=== PATIENT | female | born 1970 | race Caucasian/White ===

== ENCOUNTER 2024-12-09 22:26 | Observation (INO) ==
[2024-12-09] MEDS: SODIUM CHLORIDE 0.9% 1,000 ML IV ONE (22:55)
--- NOTE | 2024-12-09 23:01 | Emergency Department Note ---
Impression & Plan Cellulitis of right knee, Cat scratch of right lower leg, Abscess of right leg ED Provider Note CHIEF COMPLAINT: Cat scratch, right leg infection HISTORY OF PRESENT ILLNESS: This 53-year-old female patient presents to the emergency department via private vehicle for evaluation after a cat scratch. The patient states on Saturday, her friend's cat scratched her right leg. She states she noticed it become red and swollen and painful and on Saturday was seen at urgent care where she was started on Augmentin and Bactrim. She has been on these antibiotics for greater than 48 hours and was advised to come to the emergency department if she did not note significant improvement in her infection by Saturday. She states that the redness and purulent discharge are persistent. She denies red streaking up the leg or swollen lymph nodes. No fever or chills. She is able to ambulate on the extremity. She denies any nausea or vomiting or other systemic symptoms. Patient feels pretty confident that the injury was not from a bite. She states the cats vaccinations are up to date. Her vaccinations including tetanus are up to date. History provided by: Patient REVIEW OF SYSTEMS: A 10 system review of systems was performed with positives and pertinent negatives listed in the history of present illness. All other systems were reviewed and are negative. ALLERGIES: NKDA PHYSICAL EXAM: VITALS: Vitals are noted on the nurse's note and reviewed by myself. GENERAL: This is a 53 year old female, in no acute distress, nondiaphoretic, well-developed well-nourished. SKIN: Erythema with 3 puncture type of wounds on the lateral aspect of the right knee with purulent discharge from the wounds and tenderness in the area. The area is indurated. The skin was otherwise without rashes, erythema, edema, or bruising. There is no tenting of the skin. Capillary refill less than 2 seconds. HEAD: Normocephalic atraumatic. EYES: Conjunctivae without injection, sclerae without icterus. MOUTH: Mucous membranes moist. NECK: Supple without nuchal rigidity. No lymphadenopathy. Cervical spine is nontender. No JVD. HEART: Regular rate and rhythm without murmurs gallops or rubs. LUNGS: Clear to auscultation bilaterally without wheezes, rales or rhonchi. No retractions or accessory muscle use. MUSCULOSKELETAL: No muscle atrophy, erythema, or edema noted. Full range of motion without joint tenderness in all extremities. No tenderness to palpation. Normal gait. Strength 5/5 throughout. NEURO: Patient was alert and oriented to person place and time. No focal neurological deficits. EMERGENCY DEPARTMENT COURSE: The patient was evaluated as above. The patient presents for ongoing right lower extremity cellulitis and abscess secondary to a cat scratch 4 days ago. She has been on greater than 48 hours of antibiotics with no improvement and the symptoms may actually be worsening. She is having purulent discharge. There is induration but no fluctuance to palpation. The patient is afebrile. No lymphadenopathy or lymphangitis at this time. IV access obtained, labs were drawn. Labs reviewed. Per my interpretation, no leukocytosis. No concerning anemia or thrombocytopenia. Renal, hepatic function and electrolytes without significant abnormality. Patient was hydrated IV fluids and medicated with azithromycin and Zosyn. I discussed the case with assistant facility manager, followed by Dr. West, [facility] hospitalist physician who agreed to evaluate the patient for admission. Please see hospitalist dictation regarding ongoing management of this patient. Case was discussed with the attending physician. I attest that I have personally reviewed the patient medication list. I attest that I have reviewed the patient's blood pressure and it was found to be elevated. Suspect this to be situational in nature. GCS: 15 In the evaluation and treatment of this patient the following differential diagnoses were entertained:Cellulitis, abscess, MRSA infection, DVT, necrotizing fasciitis, dermatitis, drug eruption, allergic reaction, as well as other pathologies. The chart was completed utilizing [employer] Speech voice recognition software. Grammatical errors, random word insertions, pronoun errors, and incomplete sentences are an occasional consequence of this system due to software limitations, ambient noise, and hardware issues. Any formal questions or concerns about the content, text, or information contained within the body of this dictation should be directly addressed to the provider for clarification. Past Med/Surg History Problem List Abscess of right leg (Acute) Cat scratch of right lower leg (Acute) Cellulitis of right knee (Acute) Medical History No pertinent past medical history Social History Smoking Status: Never smoker Feels Safe at Home: Yes Results & Data (ED) Vital Signs Vital Signs - 24 hr 12/09/24 22:31 12/09/24 22:44 Temperature 36.8 C Temperature Source Temporal Artery Scan Pulse Rate 88 Pulse Rate [Finger] 78 Respiratory Rate 18 16 Respiratory Effort / Characteristics Non-Labored Spontaneous Non-Labored Respiratory Depth Normal Normal Respiratory Pattern Regular Blood Pressure 100/70 Blood Pressure [Right Arm] 133/69 Blood Pressure Mean 80 Blood Pressure Mean [Right Arm] 90 Blood Pressure Position [Right Arm] Semi-fowlers Pulse Oximetry 98 95 Oxygen Delivery Method Room Air Room Air Sepsis Recent Fever Within 48 Hours No Sepsis New/Unexplained Change in Mental Status N/A Sepsis Action Taken by Nursing No Action Required Laboratory Data 12/09/24 22:52 12/09/24 22:52 Lab Results 12/09/24 Range/Units 22:52 WBC 4.07 L (4.8-10.8) K/ul RBC 3.70 L (4.20-5.40) M/uL Hgb 12.1 (12.0-16.0) g/dl Hct 35.5 L (37.0-47.0) % MCV 95.9 (80.0-100.0) fL MCH 32.7 (25.0-34.0) pg MCHC 34.1 (32.0-36.0) g/dL RDW Std Deviation 41.7 (36.4-46.3) fL RDW Coeff of Eric 11.9 (11.5-14.5) % Plt Count 137 (130-400) K/uL MPV 9.9 (9.4-12.4) fL Immature Gran % (Auto) 0.0 % Neut % (Auto) 56.3 % Lymph % (Auto) 15.7 % [place] % (Auto) 16.7 % Eos % (Auto) 11.1 % Baso % (Auto) 0.2 % Neut # (Auto) 2.29 (1.40-6.50) K/uL Lymph # (Auto) 0.64 L (1.20-3.40) K/uL [place] # (Auto) 0.68 H (0.11-0.59) K/uL Eos # (Auto) 0.45 (0.00-0.50) K/uL Baso # (Auto) 0.01 (0.00-0.20) K/uL Immature Gran # (Auto) 0.00 L (0.01-0.20) K/uL Sodium 135 L (136-145) mmol/L Potassium 4.2 (3.5-5.1) mmol/L Chloride 100 (98-107) mmol/L Carbon Dioxide 26 (21-32) mmol/L Anion Gap 9 (3-11) BUN 11 (6-23) mg/dl Creatinine 0.87 (0.6-1.2) mg/dl Est Cr Clr Drug Dosing 63.8 ml/min eGFR 79.12 BUN/Creatinine Ratio 12.6 (10-20) Glucose 106 H (70-99(Fasting)) mg/dl Calcium 9.5 (8.6-10.3) mg/dl Total Bilirubin 0.7 (0.2-1.0) mg/dl AST 28 (13-39) U/L ALT 16 (7-52) U/L Alkaline Phosphatase 55 (34-104) U/L Total Protein 7.9 (6.0-8.3) gm/dl Albumin 4.2 (3.4-5.0) gm/dl Globulin 3.7 (2.5-4.0) gm/dl Albumin/Globulin Ratio 1.1 (0.9-2) Administered Medications Azithromycin (Zithromax) 500 mg in 255 mls @ 127.5 mls/hr IV NOW ONE Stop: 12/10/24 00:51 Last Admin: 12/09/24 23:39 Dose: 127.5 mls/hr Documented By: MARY Discontinued Medications Sodium Chloride (Nss) 1,000 mls @ 999 mls/hr IV .Q1H1M ONE Stop: 12/09/24 23:44 Last Infusion: 12/09/24 23:41 Dose: Infused Documented By: Admin: 12/09/24 22:55 Dose: 999 mls/hr Documented By: MIRIAM Piperacillin Sod/Tazobactam Sod (Zosyn) 4.5 gm in 120 mls @ 240 mls/hr IV NOW ONE Stop: 12/09/24 23:21 Last Infusion: 12/09/24 23:41 Dose: Infused Documented By: Admin: 12/09/24 23:06 Dose: 240 mls/hr Documented By: MIRIAM Discharge Plan Visit Data Chief Complaint: Infection, Wound Stated Complaint: RT LEG INFECTION, WOUND FOLLOWING CAT SCRATCH ED Provider: Scooter Foster ED Midlevel Provider: Lata Jones Discharge Problem: Cellulitis of right knee, Cat scratch of right lower leg, Abscess of right leg Patient Disposition: Admitted As Inpatient Condition: Good Forms Stand Alone Forms: [facility] Referrals Referrals: PCP,NO [Primary Care Provider] -
[2024-12-09] MEDS: PIPERACILLIN/TAZOBACTAM 4.5 GM/120 ML BAG IV ONE (23:06)
[2024-12-09 23:07] LABS: Hematocrit (blood only) 35.5 % (37.0-47.0); Hemoglobin 12.1 g/dl (12.0-16.0); Immature Granulocytes # (auto) 0.00 K/uL (0.01-0.20); Immature Granulocytes % (auto) 0.0 %; Mean Corpuscular Hemoglobin 32.7 pg (25.0-34.0); Mean Corpuscular Volume 95.9 fL (80.0-100.0); Platelet Count 137 K/uL (130-400); RDW Standard Deviation 41.7 fL (36.4-46.3); Red Blood Count 3.70 M/uL (4.20-5.40); White Blood Count 4.07 K/ul (4.8-10.8)
[2024-12-09 23:23] LABS: Alanine Aminotransferase 16.0 U/L (7-52); Albumin Globulin Ratio 1.1 (0.9-2); Alkaline Phosphatase 55.0 U/L (34-104); Anion Gap 9.0 (3-11); Bilirubin,Total 0.7 mg/dl (0.2-1.0); Blood Urea Nitrogen 11.0 mg/dl (6-23); Calcium 9.5 mg/dl (8.6-10.3); Carbon Dioxide 26.0 mmol/L (21-32); Chloride 100.0 mmol/L (98-107); Creatinine Clr Calc Pharmacy 63.8 ml/min; Globulin 3.7 gm/dl (2.5-4.0); Glucose 106.0 mg/dl (70-99(Fasting)); Potassium 4.2 mmol/L (3.5-5.1); Sodium 135.0 mmol/L (136-145); Total Protein 7.9 gm/dl (6.0-8.3)
[2024-12-09] MEDS: AZITHROMYCIN 500 MG/255 ML BAG IV ONE (23:39)
--- NOTE | 2024-12-10 01:21 | History & Physical Report ---
Date of Service December 10, 2024 Assessment & Plan (1) Cellulitis of right knee: Plan: Assessment and plan below following discussion of case with ED provider and reviewing patient history/pertinent normal/abnormal diagnostic test results. RLE cellulitis Secondary to cat scratch injury Failed outpatient treatment No sepsis for now Rule out abscess Hyperglycemia rule out DM Admit to MedSurg Ciprofloxacin and doxycycline CT right knee Orthopedics consult Re: Worsening RLE swelling N.p.o. in anticipation of procedure Check hemoglobin A1c DVT prophylaxis. SCDs Full code Text document was generated using [employer] voice recognition software. It may contain grammatical or spelling errors. Kindly contact undersigned for clarification of any documentation item in question. History of Present Illness Chief Complaint: Worsening right leg swelling Primary Care Provider: Dr. Denisse Batista from [place], [place] History obtained from patient and records. Medical history significant for anxiety disorder. Patient is a resident of [facility] who is visiting daughter who resides in town. Last week, patient sustained injuries on right lower leg from scratches from a friend's cat. Painful swelling noted. Patient consulted local urgent care center in [facility]. Patient prescribed Augmentin and Bactrim antibiotics. Worsening swelling despite compliance with antibiotic regimen. Bloody purulent drainage noted. No fever, no chills. Patient brought to ER by daughter for evaluation. Azithromycin and Zosyn administered at the ER. Medical History as above Surgical History : None Family History : Scleroderma Personal/Social history : Non-smoker, no EtOH intake, accounts payable work Allergies Allergy/AdvReac Type Severity Reaction Status Date / Time No Known Allergies Allergy Unverified 12/10/24 00:12 Home Medications Medication Instructions Recorded Confirmed Type Augmentin 1 dose PO BID 12/10/24 12/10/24 History Bactrim 1 dose PO BID 12/10/24 12/10/24 History Probiotic 1 dose PO DAILY 12/10/24 12/10/24 History bupropion HCl 150 mg 24 hr tablet, 150 mg PO QAM 12/10/24 12/10/24 History extended release (Wellbutrin XL) [id number] 333 mg-133 1 tab PO DAILY 12/10/24 12/10/24 History mg-5 mg tablet cholecalciferol (vitamin D3) 50 50 mcg PO DAILY 12/10/24 12/10/24 History mcg (2,000 unit) tablet (Vitamin D3) ginkgo biloba 1 tab PO DAILY 12/10/24 12/10/24 History multivitamin 1 tab PO DAILY 12/10/24 12/10/24 History Past Med/Surg History Problem List Abscess of right leg (Acute) Cat scratch of right lower leg (Acute) Cellulitis of right knee (Acute) Medical History No pertinent past medical history Social History Smoking Status: Never smoker Second Hand Exposure: No; Do You Dip or Chew Tobacco: No; Hx Alcohol Use: No Hx Substance Use: No Preferred Language: Cymraes Development And Housing Director Required: No Beliefs That Will Affect Care: None Current Living Situation: Alone Feels Safe at Home: Yes Assistive Devices: Glasses Review of Systems Review of Systems: As per HPI, all other systems reviewed and negative Physical Exam Physical Exam: GENERAL: Comfortable, pleasant, no respiratory distress SKIN: Normal color, warm HEENT: [place] palpebral conjunctivae, no ptosis, dry buccal mucosa NECK : Supple, no tenderness CHEST : CTA, no tenderness HEART : RRR, no obvious murmurs ABDOMEN: no distention, nontender EXTREMITIES : RLE scratch injury, tender RLE swelling lateral to the knee, palpable pulses, no other conspicuous deformities noted NEUROLOGIC : Coherent, no facial asymmetry, no other gross focality Results & Data Results & Data Vital Signs (Past 12 Hours) Vital Signs Temp Pulse Pulse Resp BP BP Pulse Ox 12/10/24 00:28 70 18 108/67 99 12/09/24 22:44 78 16 133/69 95 12/09/24 22:31 36.8 C 88 18 100/70 98 O2 Del Method 12/10/24 00:28 Room Air 12/09/24 22:44 Room Air 12/09/24 22:31 Room Air Laboratory Results Laboratory Results WBC 4.07 K/ul (4.8-10.8) L 12/09/24 22:52 RBC 3.70 M/uL (4.20-5.40) L 12/09/24 22:52 Hgb 12.1 g/dl (12.0-16.0) 12/09/24 22:52 Hct 35.5 % (37.0-47.0) L 12/09/24: MCV 95.9 fL (80.0-100.0) 12/09/24: MCH 32.7 pg (25.0-34.0) 12/09/24: MCHC 34.1 g/dL (32.0-36.0) 12/09/24: RDW Std Deviation 41.7 fL (36.4-46.3) 12/09/24: RDW Coeff of Eric 11.9 % (11.5-14.5) 12/09/24: Plt Count 137 K/uL (130-400) 12/09/24: MPV 9.9 fL (9.4-12.4) 12/09/24: Immature Gran % (Auto) 0.0 % 12/09/24: Neut % (Auto) 56.3 % 12/09/24: Lymph % (Auto) 15.7 % 12/09/24:52 [place] % (Auto) 16.7 % 12/09/24: Eos % (Auto) 11.1 % 12/09/24: Baso % (Auto) 0.2 % 12/09/24: Neut # (Auto) 2.29 K/uL (1.40-6.50) 12/09/24: Lymph # (Auto) 0.64 K/uL (1.20-3.40) L 12/09/24: [place] # (Auto) 0.68 K/uL (0.11-0.59) H 12/09/24:52 Eos # (Auto) 0.45 K/uL (0.00-0.50) 12/09/24: Baso # (Auto) 0.01 K/uL (0.00-0.20) 12/09/24: Immature Gran # (Auto) 0.00 K/uL (0.01-0.20) L 12/09/24: Sodium 135 mmol/L (136-145) L 12/09/24: Potassium 4.2 mmol/L (3.5-5.1) 12/09/24 22:52 Chloride 100 mmol/L (98-107) 12/09/24 22:52 Carbon Dioxide 26 mmol/L (21-32) 12/09/24 22:52 Anion Gap 9 (3-11) 12/09/24 22:52 BUN 11 mg/dl (6-23) 12/09/24 22:52 Creatinine 0.87 mg/dl (0.6-1.2) 12/09/24 22:52 Est Cr Clr Drug Dosing 63.8 ml/min 12/09/24 22:52 eGFR 79.12 12/09/24 22:52 BUN/Creatinine Ratio 12.6 (10-20) 12/09/24 22:52 Glucose 106 mg/dl (70-99(Fasting)) H 12/09/24 22:52 Calcium 9.5 mg/dl (8.6-10.3) 12/09/24 22:52 Total Bilirubin 0.7 mg/dl (0.2-1.0) 12/09/24 22:52 AST 28 U/L (13-39) 12/09/24 22:52 ALT 16 U/L (7-52) 12/09/24 22:52 Alkaline Phosphatase 55 U/L (34-104) 12/09/24 22:52 Total Protein 7.9 gm/dl (6.0-8.3) 12/09/24 22:52 Albumin 4.2 gm/dl (3.4-5.0) 12/09/24 22:52 Globulin 3.7 gm/dl (2.5-4.0) 12/09/24 22:52 Albumin/Globulin Ratio 1.1 (0.9-2) 12/09/24 22:52
[2024-12-10] MEDS ORDERED: PROMETHAZINE 6.25 MG/50.25 ML BAG IV PRN (01:44)
[2024-12-10] MEDS ORDERED: LORazepam 0.5 MG TAB PO PRN (01:44)
[2024-12-10] MEDS ORDERED: ACETAMINOPHEN 325 MG TAB PO PRN (01:44)
[2024-12-10] MEDS: OPTIRAY 320 100ml IV ONE (02:44)
--- NOTE | 2024-12-10 03:18 | CT Scan Report ---
EXAM: CT knee RT w con CLINICAL HISTORY: swelling TECHNIQUE: Contiguous axial CT images of right knee were obtained wit intravenous contrast. Coronal and sagittal reconstructions were likewise performed and indicated to increase the sensitivity for detecting clinically relevant pathology. CT scan was performed according to ALARA (as low as reasonable achievable). COMPARISON: None FINDINGS: Evidence of ill-defined soft tissue thickening with subcutaneous edema is noted involving anterolateral aspect of knee joint, along the lateral patellar retinaculum. Mild subcutaneous edema is also noted in the lateral compartment of knee joint. A Small Snyder's cyst of size 14 x 25 x 48 mm is noted at posteromedial aspect of knee joint. No acute fracture or dislocation. No destructive osseous lesion. The visualized muscles and tendons appear grossly unremarkable. No cortical destruction to suggest osteomyelitis. No abscess formation. No significant joint effusion. There are no soft tissue masses. IMPRESSION: 1. Evidence of ill-defined soft tissue thickening with subcutaneous edema is noted involving anterolateral aspect of knee joint, along the lateral patellar retinaculum.- MRI correlation is suggested. 2. Mild subcutaneous edema is also noted in the lateral compartment of knee joint. 3. A Small Snyder's cyst of size 14 x 25 x 48 mm is noted at posteromedial aspect of knee joint. Electronically signed by Hank Anderson 12-10-2024 03:18 AM
[2024-12-10] MEDS: DOXYCYCLINE HYCLATE 100 MG in DEXTROSE 5% MINI-B 100 ML IV STA (04:08)
[2024-12-10] MEDS: SODIUM CHLORIDE 0.9% 1,000 ML IV ONE (04:10)
[2024-12-10 04:50] LABS: Hematocrit (blood only) 34.0 % (37.0-47.0); Hemoglobin 11.3 g/dl (12.0-16.0); Immature Granulocytes # (auto) 0.01 K/uL (0.01-0.20); Immature Granulocytes % (auto) 0.3 %; Mean Corpuscular Hemoglobin 32.3 pg (25.0-34.0); Mean Corpuscular Volume 97.1 fL (80.0-100.0); Platelet Count 131 K/uL (130-400); RDW Standard Deviation 42.6 fL (36.4-46.3); Red Blood Count 3.50 M/uL (4.20-5.40); White Blood Count 3.93 K/ul (4.8-10.8)
[2024-12-10 05:05] LABS: Anion Gap 7.0 (3-11); Blood Urea Nitrogen 9.0 mg/dl (6-23); Calcium 8.8 mg/dl (8.6-10.3); Carbon Dioxide 25.0 mmol/L (21-32); Chloride 104.0 mmol/L (98-107); Creatinine Clr Calc Pharmacy 66.9 ml/min; Glucose 99.0 mg/dl (70-99(Fasting)); Potassium 4.1 mmol/L (3.5-5.1); Sodium 136.0 mmol/L (136-145)
[2024-12-10] MEDS: MULTIVITAMIN TAB PO SCH (07:27)
[2024-12-10] MEDS: ADVANCED PROBIOTIC 625 MG CAPSULE PO SCH (07:27)
[2024-12-10] MEDS: CHOLECALCIFEROL 25 MCG (1000 UNITS) TAB PO SCH (07:28)
[2024-12-10 07:56] LABS: Hemoglobin A1C 5.2 % (4.5-5.6)
--- NOTE | 2024-12-10 08:18 | Orthopedic Consultation ---
Date of Consultation December 10, 2024 Assessment & Plan (1) Cat scratch of right lower leg: The patient was educated regarding today's findings. MRI imaging of the knee was recommended to identify a possible abscess. This has been ordered. She may eat today. If there is a localized abscess, or her condition worsens, she will likely require I&D and possible arthroscopy of the knee tomorrow. She understands that she would be n.p.o. after midnight. Currently, she appears to be responding well to the IV antibiotics with notable reduction in swelling, redness, and pain. I recommend continuation of her IV antibiotics along with additional reassessment. If her cultures suggest an organism sensitive to oral antibiotics, she could be discharged before the weekend on orals. She understands that this is dependent on her culture and MRI findings. Application of warm moist compresses or warm water soaks of the lateral knee may promote drainage. Continue oral pain medication as needed. The patient was seen in conjunction with Dr. Baldwin, who also evaluated the patient and concurred with today's diagnosis and treatment plan. Supervising Physician Co-Signing Physician Notes I, Dr. Baldwin, saw and examined the patient with my PA. I discussed the management with my PA. I reviewed my PAs note and agree with the documented findings and attest to completing the substantive portion of medical decision making and plan of care I developed. History of Present Illness Reason for Consultation: Cellulitis right knee Attending Physician: Lucy Ospina MD History of Present Illness This 53-year-old female is seen today in orthopedic consultation for her right knee. The patient is visiting from [place]. The patient states she was scratched by her friend's cat on Saturday (5 days ago). The wounds were cleansed but she developed increasing redness over the cat scratches. She was seen at an urgent care on Saturday and placed on an oral Bactrim and Augmentin. She came to [place] to visit a friend. The redness and pain were worsening, despite the oral antibiotic. She was concerned and came to the ED where admission was recommended. She received IV piperacillin as well as Ciprofloxin. She states her pain and redness have improved. She denies any fevers. No nausea, vomiting, abdominal pain, chills, sweats, or systemic myalgias. No prior history of significant knee injury. She denies any numbness or tingling. Allergies Allergy/AdvReac Type Severity Reaction Status Date / Time No Known Allergies Allergy Unverified 12/10/24 00:12 Home Medications Medication Instructions Recorded Confirmed Type Augmentin 1 dose PO BID 12/10/24 12/10/24 History Bactrim 1 dose PO BID 12/10/24 12/10/24 History Probiotic 1 dose PO DAILY 12/10/24 12/10/24 History bupropion HCl 150 mg 24 hr tablet, 150 mg PO QAM 12/10/24 12/10/24 History extended release (Wellbutrin XL) [id number]-widgyszjz-afqt 333 mg-133 1 tab PO DAILY 12/10/24 12/10/24 History mg-5 mg tablet cholecalciferol (vitamin D3) 50 50 mcg PO DAILY 12/10/24 12/10/24 History mcg (2,000 unit) tablet (Vitamin D3) ginkgo biloba 1 tab PO DAILY 12/10/24 12/10/24 History multivitamin 1 tab PO DAILY 12/10/24 12/10/24 History Patient History Medical History No pertinent past medical history Family History Other No pertinent family history Social History Smoking Status: Never smoker Second Hand Exposure: No; Do You Dip or Chew Tobacco: No; Hx Alcohol Use: No Hx Substance Use: No Preferred Language: Frisian Communication Ability: Effective Complex Manager Required: No Beliefs That Will Affect Care: None Current Living Situation: Alone Feels Safe at Home: Yes Assistive Devices: None Review of Systems Review of Systems: All systems reviewed & are unremarkable except as noted in HPI & below Physical Exam Physical Exam: General: Well-developed, well-nourished, middle-aged white female, in no acute distress. Laying in bed. Alert and oriented. Conversive. Skin: Warm and dry with good turgor. No rashes. She has a line of demarcation placed around her lateral right knee. There is erythema within the ink sol, but it is receding from the original line. Mild warmth. It is tender to touch. She has numerous scratches over her right leg both above and below the knee. There are 2 scabs consistent with puncture mathis within her erythemic area. She is sure that these are not bite mathis, and are claw mathis. There is also a small scratch on her right volar wrist. There is no erythema or discomfort there. She has mild localized edema present along her IT band, near the puncture mathis. It is not fluctuant. Musculoskeletal: The patient has full terminal extension of her leg. She is able to perform a straight leg raise. Intact quad set. Stable Amber. Flexion to only around 40 degrees secondary to discomfort. This is both active and passive. No defect in the patellar tendon or quadriceps tendon. No appreciable intra-articular effusion. Her swelling appears extra-articular. Intact motor function of the ankle and toes. Neurologic: Gross sensation is intact across the dermatomes of the right leg by soft touch. Peripheral pulses are 2+. Results & Data Vital Signs (Past 12 Hours) Vital Signs Temp Pulse Pulse Resp BP BP Pulse Ox 12/10/24 06:22 36.7 C 77 14 107/67 98 12/10/24 05:27 74 16 113/63 99 12/10/24 02:47 89 16 122/67 98 12/10/24 00:28 70 18 108/67 99 12/09/24 22:44 78 16 133/69 95 12/09/24 22:31 36.8 C 88 18 100/70 98 O2 Del Method 12/10/24 06:22 Room Air 12/10/24 05:27 Room Air 12/10/24 02:47 Room Air 12/10/24 00:28 Room Air 12/09/24 22:44 Room Air 12/09/24 22:31 Room Air Laboratory Results 12/10/24 12/09/24 Range/Units 04:21 22:52 WBC 3.93 L 4.07 L (4.8-10.8) K/ul RBC 3.50 L 3.70 L (4.20-5.40) M/uL Hgb 11.3 L 12.1 (12.0-16.0) g/dl Hct 34.0 L 35.5 L (37.0-47.0) % MCV 97.1 95.9 (80.0-100.0) fL MCH 32.3 32.7 (25.0-34.0) pg MCHC 33.2 34.1 (32.0-36.0) g/dL RDW Std Deviation 42.6 41.7 (36.4-46.3) fL RDW Coeff of Eric 12.0 11.9 (11.5-14.5) % Plt Count 131 137 (130-400) K/uL MPV 10.2 9.9 (9.4-12.4) fL Immature Gran % (Auto) 0.3 0.0 % Neut % (Auto) 59.8 56.3 % Lymph % (Auto) 16.0 15.7 % [place] % (Auto) 14.2 16.7 % Eos % (Auto) 9.4 11.1 % Baso % (Auto) 0.3 0.2 % Neut # (Auto) 2.35 2.29 (1.40-6.50) K/uL Lymph # (Auto) 0.63 L 0.64 L (1.20-3.40) K/uL [place] # (Auto) 0.56 0.68 H (0.11-0.59) K/uL Eos # (Auto) 0.37 0.45 (0.00-0.50) K/uL Baso # (Auto) 0.01 0.01 (0.00-0.20) K/uL Immature Gran # (Auto) 0.01 0.00 L (0.01-0.20) K/uL Sodium 136 135 L (136-145) mmol/L Potassium 4.1 4.2 (3.5-5.1) mmol/L Chloride 104 100 (98-107) mmol/L Carbon Dioxide 25 26 (21-32) mmol/L Anion Gap 7 9 (3-11) BUN 9 11 (6-23) mg/dl Creatinine 0.83 0.87 (0.6-1.2) mg/dl Est Cr Clr Drug Dosing 66.9 63.8 ml/min eGFR 83.72 79.12 BUN/Creatinine Ratio 10.8 12.6 (10-20) Glucose 99 106 H (70-99(Fasting)) mg/dl Estimat Average Glucose 103 mg/dl Hemoglobin A1c 5.2 (4.5-5.6) % Calcium 8.8 9.5 (8.6-10.3) mg/dl Total Bilirubin 0.7 (0.2-1.0) mg/dl AST 28 (13-39) U/L ALT 16 (7-52) U/L Alkaline Phosphatase 55 (34-104) U/L Total Protein 7.9 (6.0-8.3) gm/dl Albumin 4.2 (3.4-5.0) gm/dl Globulin 3.7 (2.5-4.0) gm/dl Albumin/Globulin Ratio 1.1 (0.9-2) Spec: [id number] Collected: 12/09/24 Received: 12/09/[address]: Lata Jones, PAHaresh Source: Knee,Right OV Order: Ordered: Aer/Chelo Cult/Sm Procedure Result Verified Site Gram Stain Final 12/10/24 Gram Stain Result No Organisms Seen Rare WBCs Seen Aero/Chelo Cult PENDING Diagnostic Findings CT scan imaging previously obtained of the right knee is suggestive of soft tissue edema over the lateral aspect of the knee. It is consistent with her area of visible swelling. No distinct indication for intra-articular effusion or abscess collection. MRI is recommended.
[2024-12-10] MEDS: CIPROFLOXACIN / D5W 400 MG/200 ML BAG IV SCH (08:58)
[2024-12-10] MEDS ORDERED: NON-FORMULARY MEDICATION (Calcium-Magnesium-Zinc 333-133-5 mg Tablet) PO SCH (09:00)
--- NOTE | 2024-12-10 13:04 | Magnetic Resonance Report ---
MRI OF THE right KNEE WITHOUT CONTRAST CLINICAL HISTORY: r/o abscess lateral knee from cat scratch COMPARISON STUDY: CT scan dated 12/10/2024 TECHNIQUE: Utilizing a 1.5 Melinda magnet and dedicated coil, multiplanar, multiecho imaging of the rig ht knee was performed without intravenous or intraarticular contrast. FINDINGS: There are no areas of marrow replacement to indicate neoplasm. There are no areas of marrow edema to indicate osteomyelitis. The patellar and quadriceps tendons appear intact. The anterior posterior cruciate ligaments appear intact. No meniscal tears are visualized. There are prominent posterior varicosities. There is a popliteal cyst. There is superficial soft tissue edema. There is edema present within the vastus lateralis muscle. Th is is likely on an inflammatory basis. There is no MRI evidence for a drainable abscess. There is mild edema surrounding the distal femoral artery and vein.. IMPRESSION: 1. Cutaneous and subcutaneous edema involving the lateral aspect of the knee. 2. Edema within the vastus lateralis musculature. This is likely on an inflammatory/infectious basis. No well-defined abscess. Follow-up recommended 2. No evidence of osteomyelitis 4. No evidence of internal derangement 5. Popliteal cyst 6. Prominent varicosities ACT 112: Negative or not required by law. Electronically signed by: Diogo Elder M.D. 12/10/2024 1:03 PM
--- NOTE | 2024-12-10 14:17 | Hospitalist Progress Note ---
Date of Service December 10, 2024 Assessment & Plan (1) Cellulitis of right knee: Plan: Assessment and plan below following discussion of case with ED provider and reviewing patient history/pertinent normal/abnormal diagnostic test results. RLE cellulitis-Secondary to cat scratch injury Right knee swelling over the lateral side with nail sol, redness and tenderness Failed outpatient treatment with oral Bactrim and Augmentin No sepsis for now CT of the right knee showed subcutaneous edema MRI of the right knee showed cutaneous and subcutaneous edema involving the lateral aspect of the knee no evidence of abscess/osteomyelitis/internal derangements and has popliteal cyst Appreciate Ortho input and recommendation Has been getting intravenous Cipro and oral doxycycline and will continue to finish the course with oral medications on discharge tomorrow Hyperglycemia rule out DM Hemoglobin A1c is 5.2 Not diabetic DVT prophylaxis. SCDs Full code Admission and Anticipated Discharge Date Admission Date: December 10, 2024 Subjective 12/10/2024 The patient was seen and examined in medical floor Her knee pain and swelling had to be treated with She feels a little bit better since admissionno fever and no chills and no other significant symptoms Review of Systems Review of Systems: All systems reviewed and are unremarkable except as noted below Physical Exam Physical Exam: Lying in bed with acute discomfort due to right knee pain and right hip pain Constitutional: well developed, well nourished, + ill appearing and average body habitus Eyes: PERRL, conjunctivae normal, anicteric sclerae ENMT: external ear and nose normal, oropharynx normal Neck: trachea midline, no thyromegaly Respiratory: no respiratory distress Auscultation: lungs clear to auscultation bilaterally Cardiovascular: Rate/Rhythm: regular rate and regular rhythm; not tachycardic Heart Sounds: normal S1 and normal S2; no murmur Extremities: no edema Gastrointestinal (Abdomen): Inspection/Auscultation: normal bowel sounds; abdomen not distended Percussion/Palpation: abdomen soft; abdomen nontender Musculoskeletal: Knee: + knee abnormal to inspection (Right knee is swollen mostly on the outer side with nail sol from the cat ) and + skin erythema A few scratch mathis noted to right lower extremity as well but not infected Neurologic: normal touch/pain/proprioception and moves all extremities; no focal motor deficits Psychiatric: A+Ox3, euthymic affect Lymphatic: no cervical or axillary lymphadenopathy Results & Data Results & Data Vital Signs (Past 12 Hours) Vital Signs Temp Pulse Resp BP Pulse Ox O2 Del Method 12/10/24 06:22 36.7 C 77 14 107/67 98 Room Air 12/10/24 05:27 74 16 113/63 99 Room Air 12/10/24 02:47 89 16 122/67 98 Room Air Laboratory Results Short CBC 12/09/24 12/10/24 Range/Units 22:52 04:21 WBC 4.07 L 3.93 L (4.8-10.8) K/ul Hgb 12.1 11.3 L (12.0-16.0) g/dl Hct 35.5 L 34.0 L (37.0-47.0) % Plt Count 137 131 (130-400) K/uL BMP 12/09/24 12/10/24 22:52 04:21 Sodium 135 L 136 Potassium 4.2 4.1 Chloride 100 104 Carbon Dioxide 26 25 BUN 11 9 Creatinine 0.87 0.83 Glucose 106 H 99 Calcium 9.5 8.8 Liver Function 12/09/24 Range/Units 22:52 Total Bilirubin 0.7 (0.2-1.0) mg/dl AST 28 (13-39) U/L ALT 16 (7-52) U/L Alkaline Phosphatase 55 (34-104) U/L Albumin 4.2 (3.4-5.0) gm/dl Medications Administered Current Inpatient Medications Acetaminophen (Acetaminophen 325 Mg Tab) 650 mg PO QID PRN PRN Reason: pain/fever Stop: 01/09/25 01:43 Bupropion HCl (Bupropion Xl 150 Mg Tabcr) 150 mg PO QAM [facility] Stop: 01/09/25 08:59 Last Admin: 12/10/24 07:28 Dose: 150 mg Doxycycline Hyclate (Doxycycline Hyclate 100 Mg Cap) 100 mg PO BID [facility] Stop: 12/17/24 20:59 Promethazine HCl (Phenergan) 6.25 mg in 50.25 mls @ 201 mls/hr IV Q6H PRN PRN Reason: Nausea And Vomiting Stop: 01/09/25 01:43 Sodium Chloride (Nss) 1,000 mls @ 75 mls/hr IV .[id number] ONE Stop: 12/10/24 15:05 Last Admin: 12/10/24 04:10 Dose: 75 mls/hr Ciprofloxacin (Cipro / D5w) 400 mg in 200 mls @ 100 mls/hr IV Q12H [facility]; Protocol Stop: 12/17/24 08:59 Last Infusion: 12/10/24 10:58 Dose: Infused Ketorolac Tromethamine (Ketorolac Tromethamine 15 Mg/Ml Vial) 15 mg IV Q6H PRN PRN Reason: Pain Stop: 12/15/24 01:43 Lactobacillus Acidophilus (Advanced Probiotic 625 Mg Capsule) 1,250 mg PO DAILY [facility] Stop: 01/09/25 08:59 Last Admin: 12/10/24 07:27 Dose: 1,250 mg Lorazepam (Lorazepam 0.5 Mg Tab) 0.5 mg PO TID PRN PRN Reason: Anxiety Stop: 01/09/25 01:43 Multivitamins (Multivitamin Tab) 1 tab PO DAILY [facility] Stop: 01/09/25 08:59 Last Admin: 12/10/24 07:27 Dose: 1 tab Oxycodone HCl (Oxycodone Hcl Ir 5 Mg Tab (Immediate Release)) 5 mg PO Q4H PRN PRN Reason: Pain Stop: 12/24/24 01:43 Vitamin D (Cholecalciferol 25 Mcg (1000 Units) Tab) 50 mcg PO DAILY [facility] Stop: 01/09/25 08:59 Last Admin: 12/10/24 07:28 Dose: 50 mcg
--- NOTE | 2024-12-10 14:48 | Orthopedic Progress Note ---
Date of Service December 10, 2024 Assessment & Plan (1) Cat scratch of right lower leg: Plan: Patient reevaluated this afternoon with Dr. Baldwin. We reviewed her MRI which does not show any focal drainable abscess at this time. Clinically she is improving with range of motion and erythema. Cultures are still pending. Reviewed that she can continue working on range of motion exercises as tolerated. Continue with antibiotics. Defer to hospitalist team on specific antibiotics. Will keep her n.p.o. after midnight tonight, though as long as she continues to improve, no surgical intervention will be indicated. Will need to coordinate outpatient follow-up back home in [facility]. Will see patient in the morning. Admission and Anticipated Discharge Date Admission Date: December 10, 2024 Supervising Physician Co-Signing Physician Notes I, Dr. Baldwin, saw and examined the patient with my PA. I discussed the management with my PA. I reviewed my PAs note and agree with the documented findings and attest to completing the substantive portion of medical decision making and plan of care I developed. Subjective Patient seen in conjunction with Dr. Baldwin this afternoon. She is resting in bed. Was able to participate with a session of warm compresses. She is happy to report that her right knee is beginning to feel much better. She has been able to bend her knee further than she has been over the past few days. Physical Exam Constitutional: Resting comfortably in bed. No distress. Pleasant. Musculoskeletal: Right lower extremity: Knee with soft tissue swelling especially along the lateral aspect. 3 scabbed wounds are present in this vicinity. Decreased erythema and swelling. Improved Knee range of motion is 0 to 70 degrees. Skin: Skin erythema over the right knee has continued to improve well below most recent skin marker outline. Results & Data Vital Signs (Past 12 Hours) Vital Signs Temp Pulse Resp BP Pulse Ox O2 Del Method 12/10/24 06:22 98.1 F 77 14 107/67 98 Room Air 12/10/24 05:27 74 16 113/63 99 Room Air 12/10/24 02:47 89 16 122/67 98 Room Air Laboratory Results 12/09/24 22:40 Gram Stain - Final Knee,Right Aerobic and Anaerobic Culture - Pending 12/10/24 12/09/24 04:21 22:52 WBC 3.93 L 4.07 L RBC 3.50 L 3.70 L Hgb 11.3 L 12.1 Hct 34.0 L 35.5 L MCV 97.1 95.9 MCH 32.3 32.7 MCHC 33.2 34.1 RDW Std Deviation 42.6 41.7 RDW Coeff of Eric 12.0 11.9 Plt Count 131 137 MPV 10.2 9.9 Immature Gran % (Auto) 0.3 0.0 Neut % (Auto) 59.8 56.3 Lymph % (Auto) 16.0 15.7 [place] % (Auto) 14.2 16.7 Eos % (Auto) 9.4 11.1 Baso % (Auto) 0.3 0.2 Neut # (Auto) 2.35 2.29 Lymph # (Auto) 0.63 L 0.64 L [place] # (Auto) 0.56 0.68 H Eos # (Auto) 0.37 0.45 Baso # (Auto) 0.01 0.01 Immature Gran # (Auto) 0.01 0.00 L Sodium 136 135 L Potassium 4.1 4.2 Chloride 104 100 Carbon Dioxide 25 26 Anion Gap 7 9 BUN 9 11 Creatinine 0.83 0.87 Est Cr Clr Drug Dosing 66.9 63.8 eGFR 83.72 79.12 BUN/Creatinine Ratio 10.8 12.6 Glucose 99 106 H Estimat Average Glucose 103 Hemoglobin A1c 5.2 Calcium 8.8 9.5 Total Bilirubin 0.7 AST 28 ALT 16 Alkaline Phosphatase 55 Total Protein 7.9 Albumin 4.2 Globulin 3.7 Albumin/Globulin Ratio 1.[address] 12/10/24 01:43 EXAM: CT knee RT w con CLINICAL HISTORY: swelling TECHNIQUE: Contiguous axial CT images of right knee were obtained wit intravenous contrast. Coronal and sagittal reconstructions were likewise performed and indicated to increase the sensitivity for detecting clinically relevant pathology. CT scan was performed according to ALARA (as low as reasonable achievable). COMPARISON: None FINDINGS: Evidence of ill-defined soft tissue thickening with subcutaneous edema is noted involving anterolateral aspect of knee joint, along the lateral patellar retinaculum. Mild subcutaneous edema is also noted in the lateral compartment of knee joint. A Small Snyder's cyst of size 14 x 25 x 48 mm is noted at posteromedial aspect of knee joint. No acute fracture or dislocation. No destructive osseous lesion. The visualized muscles and tendons appear grossly unremarkable. No cortical destruction to suggest osteomyelitis. No abscess formation. No significant joint effusion. There are no soft tissue masses. IMPRESSION: 1. Evidence of ill-defined soft tissue thickening with subcutaneous edema is noted involving anterolateral aspect of knee joint, along the lateral patellar retinaculum.- MRI correlation is suggested. 2. Mild subcutaneous edema is also noted in the lateral compartment of knee joint. 3. A Small Snyder's cyst of size 14 x 25 x 48 mm is noted at posteromedial aspect of knee joint. Electronically signed by Hank Anderson 12-10-2024 03:18 AM Knee MRI 12/10/24 07:51 MRI OF THE right KNEE WITHOUT CONTRAST CLINICAL HISTORY: r/o abscess lateral knee from cat scratch COMPARISON STUDY: CT scan dated 12/10/2024 TECHNIQUE: Utilizing a 1.5 Melinda magnet and dedicated coil, multiplanar, multiecho imaging of the right knee was performed without intravenous or intraarticular contrast. FINDINGS: There are no areas of marrow replacement to indicate neoplasm. There are no areas of marrow edema to indicate osteomyelitis. The patellar and quadriceps tendons appear intact. The anterior posterior cruciate ligaments appear intact. No meniscal tears are visualized. There are prominent posterior varicosities. There is a popliteal cyst. There is superficial soft tissue edema. There is edema present within the vastus lateralis muscle. This is likely on an inflammatory basis. There is no MRI evidence for a drainable abscess. There is mild edema surrounding the distal femoral artery and vein.. IMPRESSION: 1. Cutaneous and subcutaneous edema involving the lateral aspect of the knee. 2. Edema within the vastus lateralis musculature. This is likely on an inflammatory/infectious basis. No well-defined abscess. Follow-up recommended 2. No evidence of osteomyelitis 4. No evidence of internal derangement 5. Popliteal cyst 6. Prominent varicosities ACT 112: Negative or not required by law. Electronically signed by: Diogo Elder M.D. 12/10/2024 1:03 PM
[2024-12-10] MEDS: DOXYCYCLINE HYCLATE 100 MG CAP PO SCH (20:28)
[2024-12-11] MEDS: KETOROLAC TROMETHAMINE 15 MG/ML VIAL IV PRN (02:00)
[2024-12-11 07:09] VITALS: BP 110/71; PULSE 64; RESP 18; TEMP 97.9; O2SAT 97
[2024-12-11 10:35] LABS: Hematocrit (blood only) 37.7 % (37.0-47.0); Hemoglobin 12.5 g/dl (12.0-16.0); Immature Granulocytes # (auto) 0.00 K/uL (0.01-0.20); Immature Granulocytes % (auto) 0.0 %; Mean Corpuscular Hemoglobin 32.6 pg (25.0-34.0); Mean Corpuscular Volume 98.4 fL (80.0-100.0); Platelet Count 142 K/uL (130-400); RDW Standard Deviation 42.6 fL (36.4-46.3); Red Blood Count 3.83 M/uL (4.20-5.40); White Blood Count 2.70 K/ul (4.8-10.8)
[2024-12-11 10:47] LABS: Anion Gap 7.0 (3-11); Calcium 9.5 mg/dl (8.6-10.3); Carbon Dioxide 28.0 mmol/L (21-32); Chloride 104.0 mmol/L (98-107); Potassium 4.3 mmol/L (3.5-5.1); Sodium 139.0 mmol/L (136-145)
--- NOTE | 2024-12-11 10:50 | Orthopedic Progress Note ---
Date of Service December 11, 2024 Assessment & Plan (1) Cat scratch of right lower leg: Plan: Patient was experiencing an episode of significant pain last night which improved with Toradol, woke up drenched in sweat an hour later. Question if she had a low-grade fever however this was not documented. She is afebrile this morning and her pain is improved from yesterday. The knee appearance continues to improve. Her tenderness is improving and the swelling is becoming more localized with no obvious development of an abscess. Cultures are still pending. Continue working on range of motion exercises as tolerated and instructed. Weightbearing as tolerated. Continue with antibiotics. Defer to hospitalist team on specific antibiotics. Can transition to oral antibiotics whenever they feel it is necessary. Patient does not require surgery. Her n.p.o. status was canceled. Requested a warm compress to nursing staff. Patient can do this 3 times per day and gently milk the area after the compress. Advised her to not squeeze this hard which would cause tissue damage. She will require primary care follow-up next week when she returns to [place]. Orthopedics will sign off. Contact us with any questions or concerns. Patient seen in conjunction with Dr. Baldwin this morning. Admission and Anticipated Discharge Date Admission Date: December 10, 2024 Supervising Physician Co-Signing Physician Notes I, Dr. Baldwin, saw and examined the patient with my PA. I discussed the management with my PA. I reviewed my PAs note and agree with the documented findings and attest to completing the substantive portion of medical decision making and plan of care I developed. Subjective Patient is seen in bed this morning. She states that she had a tough night. Was having a lot of pain overnight and received some Toradol. This helped with her pain and about an hour later she woke up drenched in sweat. This morning her pain is doing much better. She was able to ambulate and can raise her leg higher than she was able to yesterday. She has been working on range of motion exercises as instructed. Physical Exam Constitutional: Resting comfortably in bed. No distress. Well-appearing Cardiovascular: Right DP pulse 2+ Musculoskeletal: Right lower extremity: 3 scabbed puncture wounds present on the lateral knee with local surrounding soft tissue swelling and induration. This is mildly tender to palpation, improved from 24 hours ago. Able to perform straight leg raise 2 feet off the bed, also improved from yesterday. Range of motion 0 to 90 degrees, about the same as yesterday afternoon. There is no fluctuance. No knee effusion. Minimal erythema at this point. No lymphatic streaking. Strength 5/5 with ankle plantarflexion, dorsiflexion, eversion. Neurologic: No sensory deficits right lower extremity to light touch L3-S1 distribution Results & Data Vital Signs (Past 12 Hours) Vital Signs Temp Pulse Resp BP Pulse Ox O2 Del Method 12/11/24 07:07 97.9 F 64 18 110/71 97 Room Air Laboratory Results 12/11/24 10:08 WBC 2.70 L RBC 3.83 L Hgb 12.5 Hct 37.7 MCV 98.4 MCH 32.6 MCHC 33.2 RDW Std Deviation 42.6 RDW Coeff of Eric 11.8 Plt Count 142 MPV 10.2 Immature Gran % (Auto) 0.0 Neut % (Auto) 50.3 Lymph % (Auto) 25.9 [place] % (Auto) 11.9 Eos % (Auto) 11.5 Baso % (Auto) 0.4 Neut # (Auto) 1.36 L Lymph # (Auto) 0.70 L [place] # (Auto) 0.32 Eos # (Auto) 0.31 Baso # (Auto) 0.01 Immature Gran # (Auto) 0.00 L Diagnostic Findings Knee MRI 12/10/24 07:51 MRI OF THE right KNEE WITHOUT CONTRAST CLINICAL HISTORY: r/o abscess lateral knee from cat scratch COMPARISON STUDY: CT scan dated 12/10/2024 TECHNIQUE: Utilizing a 1.5 Melinda magnet and dedicated coil, multiplanar, multiecho imaging of the right knee was performed without intravenous or intraarticular contrast. FINDINGS: There are no areas of marrow replacement to indicate neoplasm. There are no areas of marrow edema to indicate osteomyelitis. The patellar and quadriceps tendons appear intact. The anterior posterior cruciate ligaments appear intact. No meniscal tears are visualized. There are prominent posterior varicosities. There is a popliteal cyst. There is superficial soft tissue edema. There is edema present within the vastus lateralis muscle. This is likely on an inflammatory basis. There is no MRI evidence for a drainable abscess. There is mild edema surrounding the distal femoral artery and vein.. IMPRESSION: 1. Cutaneous and subcutaneous edema involving the lateral aspect of the knee. 2. Edema within the vastus lateralis musculature. This is likely on an inflammatory/infectious basis. No well-defined abscess. Follow-up recommended 2. No evidence of osteomyelitis 4. No evidence of internal derangement 5. Popliteal cyst 6. Prominent varicosities ACT 112: Negative or not required by law. Electronically signed by: Diogo Elder M.D. 12/10/2024 1:03 PM
[2024-12-11 10:53] LABS: Blood Urea Nitrogen 11.0 mg/dl (6-23); Creatinine Clr Calc Pharmacy 68.6 ml/min; Glucose 132.0 mg/dl (70-99(Fasting))
--- NOTE | 2024-12-11 12:58 | Hospitalist Progress Note ---
Date of Service December 11, 2024 Assessment & Plan (1) Cellulitis of right knee: Plan: Assessment and plan below following discussion of case with ED provider and reviewing patient history/pertinent normal/abnormal diagnostic test results. RLE cellulitis-Secondary to cat scratch injury Right knee swelling over the lateral side with nail sol, redness and tenderness Failed outpatient treatment with oral Bactrim and Augmentin No sepsis for now CT of the right knee showed subcutaneous edema MRI of the right knee showed cutaneous and subcutaneous edema involving the lateral aspect of the knee no evidence of abscess/osteomyelitis/internal derangements and has popliteal cyst Appreciate Ortho input and recommendation Has been getting intravenous Cipro and oral doxycycline and will continue to finish the course with oral medications on discharge tomorrow Her right knee swelling, redness and tenderness and pain are much improved Has been moving around without any significant issues Her EKG did not show any change to the QT or any QT prolongation She will be discharged on oral Cipro and doxycycline to continue for 7 days to finish the course Hyperglycemia rule out DM Hemoglobin A1c is 5.2 Not diabetic DVT prophylaxis. SCDs Full code Admission and Anticipated Discharge Date Admission Date: December 10, 2024 Subjective 12/10/2024 The patient was seen and examined in medical floor Her knee pain and swelling had to be treated with She feels a little bit better since admissionno fever and no chills and no other significant symptoms 12/11/2024 The patient was seen and examined in medical floor She has been feeling much better since this morning Has had an episode of more pain in the right knee last night with some swelling but no documented fever She will be discharged home this afternoon Review of Systems Review of Systems: All systems reviewed and are unremarkable except as noted below Physical Exam Physical Exam: Lying in bed with acute discomfort due to right knee pain and right hip pain Constitutional: well developed, well nourished, + ill appearing and average body habitus Eyes: PERRL, conjunctivae normal, anicteric sclerae ENMT: external ear and nose normal, oropharynx normal Neck: trachea midline, no thyromegaly Respiratory: no respiratory distress Auscultation: lungs clear to auscultation bilaterally Cardiovascular: Rate/Rhythm: regular rate and regular rhythm; not tachycardic Heart Sounds: normal S1 and normal S2; no murmur Extremities: no edema Gastrointestinal (Abdomen): Inspection/Auscultation: normal bowel sounds; abdomen not distended Percussion/Palpation: abdomen soft; abdomen nontender Musculoskeletal: Knee: + knee abnormal to inspection (Right knee is swollen mostly on the outer side with nail sol from the cat ) and + skin erythema Neurologic: normal touch/pain/proprioception and moves all extremities; no focal motor deficits Psychiatric: A+Ox3, euthymic affect Lymphatic: no cervical or axillary lymphadenopathy Results & Data Results & Data Vital Signs (Past 12 Hours) Vital Signs Temp Pulse Resp BP Pulse Ox O2 Del Method 12/11/24 07:07 36.6 C 64 18 110/71 97 Room Air Laboratory Results Short CBC 12/11/24 Range/Units 10:08 WBC 2.70 L (4.8-10.8) K/ul Hgb 12.5 (12.0-16.0) g/dl Hct 37.7 (37.0-47.0) % Plt Count 142 (130-400) K/uL BMP 12/11/24 10:08 Sodium 139 Potassium 4.3 Chloride 104 Carbon Dioxide 28 BUN 11 Creatinine 0.81 Glucose 132 H Calcium 9.5 Medications Administered Current Inpatient Medications Acetaminophen (Acetaminophen 325 Mg Tab) 650 mg PO QID PRN PRN Reason: pain/fever Stop: 01/09/25 01:43 Bupropion HCl (Bupropion Xl 150 Mg Tabcr) [facility] Stop: 01/09/25 08:59 Last Admin: 12/11/24 08:11 Dose: 150 mg Ciprofloxacin (Ciprofloxacin 500 Mg Tab) 500 mg PO BID [facility]; Protocol Stop: 12/18/24 20:59 Doxycycline Hyclate (Doxycycline Hyclate 100 Mg Cap) 100 mg PO BID [facility] Stop: 12/17/24 20:59 Last Admin: 12/11/24 08:11 Dose: 100 mg Promethazine HCl (Phenergan) 6.25 mg in 50.25 mls @ 201 mls/hr IV Q6H PRN PRN Reason: Nausea And Vomiting Stop: 01/09/25 01:43 Ketorolac Tromethamine (Ketorolac Tromethamine 15 Mg/Ml Vial) 15 mg IV Q6H PRN PRN Reason: Pain Stop: 12/15/24 01:43 Last Admin: 12/11/24 02:00 Dose: 15 mg Lactobacillus Acidophilus (Advanced Probiotic 625 Mg Capsule) 1,250 mg PO DAILY [facility] Stop: 01/09/25 08:59 Last Admin: 12/11/24 08:12 Dose: 1,250 mg Lorazepam (Lorazepam 0.5 Mg Tab) 0.5 mg PO TID PRN PRN Reason: Anxiety Stop: 01/09/25 01:43 Multivitamins (Multivitamin Tab) 1 tab PO DAILY [facility] Stop: 01/09/25 08:59 Last Admin: 12/11/24 08:12 Dose: 1 tab Oxycodone HCl (Oxycodone Hcl Ir 5 Mg Tab (Immediate Release)) 5 mg PO Q4H PRN PRN Reason: Pain Stop: 12/24/24 01:43 Vitamin D (Cholecalciferol 25 Mcg (1000 Units) Tab) 50 mcg PO DAILY [facility] Stop: 01/09/25 08:59 Last Admin: 12/11/24 08:11 Dose: 50 mcg
--- NOTE | 2024-12-11 15:00 | Electrocardiogram Report ---
Test Reason : Blood Pressure : */* mmHG Vent. Rate : 68 BPM Atrial Rate : 68 BPM P-R Int : 142 ms QRS Dur : 82 ms QT Int : 396 ms P-R-T Axes : 61 52 53 degrees QTcB Int : 421 ms Normal sinus rhythm Possible Left atrial enlargement Nonspecific ST abnormality Abnormal ECG No previous ECGs available Confirmed by Fred Valdez [id number]) on 12/11/2024 3:00:02 PM Referred By: REFERRED SELF Confirmed By: Fred Valdez
[2024-12-11] MEDS ORDERED: CIPROFLOXACIN 500 MG TAB PO SCH (21:00)
--- NOTE | 2024-12-12 07:49 | Discharge Summary ---
Date of Service December 12, 2024 Admission HPI Per Admitting Provider History obtained from patient and records. Medical history significant for anxiety disorder. Patient is a resident of [facility] who is visiting daughter who resides in town. Last week, patient sustained injuries on right lower leg from scratches from a friend's cat. Painful swelling noted. Patient consulted local urgent care center in [facility]. Patient prescribed Augmentin and Bactrim antibiotics. Worsening swelling despite compliance with antibiotic regimen. Bloody purulent drainage noted. No fever, no chills. Patient brought to ER by daughter for evaluation. Azithromycin and Zosyn administered at the ER. Medical History as above Surgical History : None Family History : Scleroderma Personal/Social history : Non-smoker, no EtOH intake, accounts payable work Admission Exam Per Admitting Provider Physical Exam: GENERAL: Comfortable, pleasant, no respiratory distress SKIN: Normal color, warm HEENT: [place] palpebral conjunctivae, no ptosis, dry buccal mucosa NECK : Supple, no tenderness CHEST : CTA, no tenderness HEART : RRR, no obvious murmurs ABDOMEN: no distention, nontender EXTREMITIES : RLE scratch injury, tender RLE swelling lateral to the knee, palpable pulses, no other conspicuous deformities noted NEUROLOGIC : Coherent, no facial asymmetry, no other gross focality Principal Diagnosis Infected cat scratch, right knee cellulitis Discharge Exam Lying in bed with acute discomfort due to right knee pain and right hip pain Constitutional well developed, well nourished, + ill appearing and average body habitus Eyes PERRL, conjunctivae normal, anicteric sclerae ENMT external ear and nose normal, oropharynx normal Neck trachea midline, no thyromegaly Respiratory no respiratory distress Auscultation: lungs clear to auscultation bilaterally Cardiovascular Rate/Rhythm: regular rate and regular rhythm; not tachycardic Heart Sounds: normal S1 and normal S2; no murmur Extremities: no edema Gastrointestinal (Abdomen) Inspection/Auscultation: normal bowel sounds; abdomen not distended Percussion/Palpation: abdomen soft; abdomen nontender Musculoskeletal Knee: + knee abnormal to inspection (Right knee is swollen mostly on the outer side with nail sol from the cat ) and + skin erythema Neurologic normal touch/pain/proprioception and moves all extremities; no focal motor deficits Psychiatric A+Ox3, euthymic affect Lymphatic no cervical or axillary lymphadenopathy Discharge Data Allergies Allergy/AdvReac Type Severity Reaction Status Date / Time No Known Allergies Allergy Unverified 12/10/24 00:12 Consultations 12/09/24 23:55 ED Decision to Admit Stat 12/10/24 03:32 Consult Orthopedic Surgery Routine Ordered Studies 12/10/24 01:43 CT knee RT w con Stat 12/10/24 07:51 MRI Knee [MR knee RT wo con] Urgent Hospital Course (1) Cellulitis of right knee: Assessment and plan below following discussion of case with ED provider and reviewing patient history/pertinent normal/abnormal diagnostic test results. RLE cellulitis-Secondary to cat scratch injury Right knee swelling over the lateral side with nail sol, redness and tenderness Failed outpatient treatment with oral Bactrim and Augmentin No sepsis for now CT of the right knee showed subcutaneous edema MRI of the right knee showed cutaneous and subcutaneous edema involving the lateral aspect of the knee no evidence of abscess/osteomyelitis/internal derangements and has popliteal cyst Appreciate Ortho input and recommendation Has been getting intravenous Cipro and oral doxycycline and will continue to finish the course with oral medications on discharge tomorrow Her right knee swelling, redness and tenderness and pain are much improved Has been moving around without any significant issues Her EKG did not show any change to the QT or any QT prolongation She will be discharged on oral Cipro and doxycycline to continue for 7 days to finish the course Hyperglycemia rule out DM Hemoglobin A1c is 5.2 Not diabetic DVT prophylaxis. SCDs Full code Total Time Total Time Spent Total Time Spent (In Minutes): 35 minutes Discharge Plan Discharge Items Patient Disposition: Home - Self-Care Reason For Visit: INFECTED RLE WOUND Discharge Diagnosis: Infected cat scratch, right knee cellulitis Condition on Discharge: Good Activity: Resume your previous activity Non-emergency contact: Primary Care Provider Call non-emergency contact if: you have any medication questions and your symptoms worsen Follow-up/Referrals: PCP,NO [Primary Care Provider] - ( Please make an appointment with your PCP within 7 days) Diet: Regular Addtl Attending Provider Instructions: Please take precautions to avoid falls Finish the course of antibiotic You can try some nvvk-cda-[id number] probiotics with antibiotic Please make an appointment with your PCP within 7 days Addtl Back Shoe Operator Provider Instructions: Orthopedic discharge instructions Weight-bear as tolerated on the right lower extremity. May need crutches or walker to assist with ambulation. Continue to work on range of motion exercises, straight leg raises, knee flexion and extension several times per day. Can continue with warm moist compresses 15 minutes 3 times daily followed by gentle milking of the area until the wounds are closed. Do not apply significant pressure which would cause tissue damage. Continue antibiotics as prescribed until they are completed. Recommend follow-up with your primary care provider within the next week for reevaluation and ongoing management. If you have persistent stiffness or weakness you may require physical therapy on an outpatient basis. Need to return to an emergency department if symptoms worsen as we discussed. Pending Studies at Discharge: No Stand-Alone Forms: [facility], Smoking Cessation Medications and DC Order Prescriptions: New doxycycline hyclate 100 mg Capsule 100 mg PO BID Qty: 14 0RF ciprofloxacin HCl 500 mg Tablet 500 mg PO BID Qty: 14 0RF Continued bupropion HCl [Wellbutrin XL] 150 mg Tablet Extended Release 24 Hr 150 mg PO QAM multivitamin Tablet 1 tab PO DAILY [id number] 333-133-5 mg Tablet 1 tab PO DAILY cholecalciferol (vitamin D3) [Vitamin D3] 50 mcg (2,000 unit) Tablet 50 mcg PO DAILY ginkgo biloba Tablet 1 tab PO DAILY Rx Instructions: unknown dose Probiotic 1 dose PO DAILY Discontinued Augmentin 1 dose PO BID Rx Instructions: unknown strength...started 12/07/24 Bactrim 1 dose PO BID Rx Instructions: unknown strength started 12/07/24 Discharge Orders: Discharge Order (Routine); Ordered 12/11/24 Ordered By: Lucy Ospina Admission Data Admit Date/Time: 12/10/24 01:22 Attending Provider: Lucy Ospina Admit Provider: Jakub West Primary Care Provider: PCP,NO Other Providers: Jakub West; Peter Baldwin Other Interventions: Discharge Summary Assessment (RN) Last Done: 12/11/24 13:12
== END 2024-12-11 14:13 | disposition home or self-care (01) | DRG 603 ==
LOC: ED 22:26 → INTOOBSV 12-10 01:22 → EDINP 12-10 01:22 → 3W 12-10 02:12